=== PATIENT | female | born 1970 | race Asian ===

== ENCOUNTER 2016-12-03 13:17 | Emergency (ER) | payer OTHER ==
[2016-12-03] MEDS ORDERED: CYCLOBENZAPRINE 10 MG TABLET PO STA (13:33)
[2016-12-03] MEDS ORDERED: KETOROLAC 30 MG/ML VIAL IM STA (13:33)
--- NOTE | 2016-12-03 13:35 | ED Physician Documentation ---
PD HPI BACK PAIN - Stated complaint Stated Complaint: BACK PX - Chief complaint Chief Complaint: Back Pain - History obtained from History obtained from: Patient - History of Present Illness Timing - onset: Today Timing - duration: Hours (1.5) Timing - details: Abrupt onset Pain level max: 9 Pain level now: 9 Location: Lower, Right, Left Quality: Pain, Spasm Associated symptoms: No: Fever, Weakness, Numbness, Incontinent of urine, Unable to urinate, Hematuria, Incontinent of stool Improves with: Rest Worsened by: Movement Contributing factors: Other (states bent over to scrap picker a remote control and developed low back pain) Similar symptoms before: Has not had sx before Recently seen: Not recently seen Review of Systems Constitutional: denies: Fever, Chills Throat: denies: Sore throat Respiratory: denies: Cough GI: denies: Nausea, Vomiting, Diarrhea : denies: Dysuria, Frequency, Hesitancy, Unable to Void, Incontinent, Now EGA Skin: denies: Rash Musculoskeletal: denies: Neck pain Neurologic: denies: Focal weakness, Numbness, Headache PD PAST MEDICAL HISTORY - Past Medical History Past Medical History: No - Present Medications Home Medications: Ambulatory Orders Medication Instructions Recorded Confirmed Candesartan/Hydrochlorothiazid 1 tab PO DAILY 12/03/16 12/03/16 [Candesartan-Hctz 16-12.5 mg Tb] Cyclobenzaprine [Flexeril] 10 mg PO TID PRN #20 tablet 12/03/16 Ibuprofen [Motrin] 800 mg PO Q8H PRN #30 tablet 12/03/16 - Allergies Allergies/Adverse Reactions: Allergies Allergy/AdvReac Type Severity Reaction Status Date / Time penicillamine Allergy Anaphylaxis Verified 12/03/16 13:46 - Living Situation Living Situation: reports: With family Living Arrangement: reports: At home - Social History Does the pt have substance abuse?: No - Family History Family history: reports: Non contributory PD ED PE NORMAL - Vitals Vital signs reviewed: Yes - General General: Alert and oriented X 3, No acute distress - HEENT HEENT: Atraumatic, PERRL, Moist mucous membranes - Neck Neck: Supple, no meningeal sign, No bony TTP - Cardiac Cardiac: RRR - Respiratory Respiratory: No respiratory distress, Clear bilaterally - Abdomen Abdomen: Soft, Non tender, Non distended - Back Back: No CVA TTP, Other (no midline TTP. paraspinal spasm R>L low lumbar) - Derm Derm: Warm and dry - Extremities Extremities: No deformity, No tenderness to palpate, No calf tenderness / cord - Neuro Neuro: Alert and oriented X 3, No motor deficit, No sensory deficit - Psych Psych: Normal mood, Normal affect Results - Vitals Vitals: Vital Signs - 24 hr 12/03/16 12/03/16 13:20 14:18 Temperature 36.2 C L 37.4 C Heart Rate 107 H 93 Respiratory 18 18 Rate Blood Pressure 194/97 H 140/89 H O2 Saturation 99 100 Oxygen O2 Source Room air PD MEDICAL DECISION MAKING - ED course Complexity details: re-evaluated patient, considered differential (no cauda equina, no spinal epidural abscess, no fracture, no aortic dissection or evidence of aneursym rupture), d/w patient, d/w family ED course: Patient presents to the emergency department what appears to be musculoskeletal back pain. No evidence of cauda equina, fracture or epidural abscess. Feels better after Flexeril and Toradol. We will place her on anti-inflammatory medications and muscle relaxants for home. Patient is ambulating well. Patient counseled regarding signs and symptoms for which I believe and urgent re- evaluation would be necessary. Patient with good understanding of and agreement to plan and is comfortable going home at this time This document was made in part using voice recognition software. While efforts are made to proofread this document, sound alike and grammatical errors may occur. Departure - Departure Disposition: 01 Home, Self Care Clinical Impression: Low back strain Qualifiers: Encounter type: initial encounter Qualified Code(s): S39.012A - Strain of muscle, fascia and tendon of lower back, initial encounter Condition: Good Instructions: ED Low Back Pain Injury Follow-Up: Kiel Bustos DO [Primary Care Provider] - Within 1 week Prescriptions: Cyclobenzaprine [Flexeril] 10 mg PO TID PRN #20 tablet PRN Reason: Spasms Ibuprofen [Motrin] 800 mg PO Q8H PRN #30 tablet PRN Reason: PAIN &/OR FEVER Comments: Return if you worsen. This should improve over the next 2-[address] heavy machinery while taking the flexeril. Your blood pressure was elevated today on check in to the emergency department. This does not mean that you have hypertension, it is a common phenomenon to check into the emergency department and have elevated blood pressure. I recommend that you see your primary care physician within the week to have it rechecked when you're feeling better. Discharge Date/Time: 12/03/16 14:37
[2016-12-03] MEDS ORDERED: KETOROLAC 30 MG/ML VIAL ONE (13:39)
[2016-12-03] MEDS ORDERED: CYCLOBENZAPRINE 10 MG TABLET PO ONE (13:40)
[2016-12-03 14:19] VITALS: BP 140/89
== END 2016-12-03 14:37 | disposition home or self-care (01) ==
LOC: ED 13:17
DX: S39.012A Strain of muscle, fascia and tendon of lower back, initial encounter (principal); X50.9XXA Other and unspecified overexertion or strenuous movements or postures, initial encounter; Y93.89 Activity, other specified; R03.0 Elevated blood-pressure reading, without diagnosis of hypertension
CPT/HCPCS: 96372; 99283; A9270

== ENCOUNTER 2018-07-22 12:51 | Outpatient (CLI) | payer OTHER | END 2018-07-22 12:52 | disposition home or self-care (01) | LOC: DI 12:51 | PROVIDERS: ATTEND Family Medicine | DX: E03.9 Hypothyroidism, unspecified (principal); R00.2 Palpitations; I11.9 Hypertensive heart disease without heart failure | CPT/HCPCS: 93306 ==